=== PATIENT | male | born 1990 | race Caucasian/White ===

== ENCOUNTER 2016-10-06 00:53 | Emergency (ER) | payer SELFPAY ==
[~2016-10-06] VITALS: Ht 180.3 cm; Wt 90.0 kg
[2016-10-06] VITALS (8 sets, daily range): BP systolic 103–139; BP diastolic 61–88; PULSE 74–97; RESP 12–20; TEMP 97.7; O2SAT 95–98
[~2016-10-06 00:53] MED LIST: DOLU1TAB4 PO; TRUVTAB2 PO
--- NOTE | 2016-10-06 01:08 | PD ---
HPI Chief Complaint: OD/ Ingestion Time Seen by Provider: 01:03 Travel History International Travel<30 days: No Contact w/Intl Traveler<30days: No Traveled to known affect area: No History of Present Illness HPI 26-year-old male presents to the emergency department by EMS transport as a heroin overdose. Reportedly patient is able to share his history and states that around 12 midnight he injected heroin. Patient states that this is approximately the fourth time today that he has injected heroin. Patient is an admitted IV drug abuser. Patient typically uses Dilaudid but states it's too expensive and heroin is cheaper. Patient denies being suicidal. Patient did require a total of 1.2 mg of Narcan administration in order to maintain GCS of 15. Patient denies other substance ingestion or alcohol use. Again patient denies trying to harm himself or others. Patient was with a group of people who abuse heroin and collapsed on the couch where he had been sitting after his most recent injection. There was no reported trauma. There was reportedly attempted bystander CPR which was discontinued when bystanders noted the patient was breathing. No report of vomiting. EMS arrived after Friday department that had already arrived on the scene and was bagging the patient and third time of arrival and EMS reports patient had marked diminished and decreased breath sounds and respiratory effort with 4 breaths per minute was administered 0.4 Narcan with minimal response and additional 0.4 Narcan with improvement to LOC of 15 and was started to decrease his mentation therefore a final dose 0.4 mg of Narcan administered patient has continued to need to provide history and maintained GCS of 15. PFSH Past Medical History Narrative Medical ADHD bipolar disorder IV drug abuse hepatitis C HIV; alcohol use, tobacco use, IV drug abuse; nursing notes reviewed Hx Anticoagulant Therapy: No ADHD: Yes Bipolar Disorder: Yes Anxiety: Yes Cardiovascular Problems: No Chemotherapy: No Cerebrovascular Accident: No Diabetes: No Diminished Hearing: No Hepatitis: Yes (C) Immune Disorder: Yes (HIV) Psychiatric: Yes (Hx.) Respiratory: No Immunizations Current: Yes Social History Alcohol Use: Yes (OCC) Tobacco Use: Yes (1/2) Substance Use: Yes (IV) Allergies-Medications (Allergen,Severity, Reaction): Coded Allergies: No Known Allergies (Verified , 10/06/16) Reported Meds & Prescriptions Reported Meds & Active Scripts Active No Active Prescriptions or Reported Medications Review of Systems Except as stated in HPI: all other systems reviewed are Neg General / Constitutional: No: Fever HENT: No: Congestion Cardiovascular: No: Chest Pain or Discomfort Respiratory: No: Shortness of Breath Gastrointestinal: No: Vomiting, Abdominal Pain Genitourinary: No: Flank Pain Musculoskeletal: No: Myalgias, Arthralgias Skin: No Rash Neurologic: No: Weakness Psychiatric: Positive: Substance Abuse, No: Suicidal Ideations, Homicidal Ideation Hematologic/Lymphatic: No: Easy Bruising Physical Exam Narrative GENERAL: Well-developed well-nourished mildly disheveled male GCS of 15 SKIN: Warm and dry. HEAD: Atraumatic. Normocephalic. EYES: Pupils equal and round. No scleral icterus. No injection or drainage. ENT: No nasal bleeding or discharge. Mucous membranes pink and moist. NECK: Trachea midline. No JVD. CARDIOVASCULAR: Regular rate and rhythm. RESPIRATORY: No accessory muscle use. Clear to auscultation. Breath sounds equal bilaterally. GASTROINTESTINAL: Abdomen soft, non-tender, nondistended. Hepatic and splenic margins not palpable. MUSCULOSKELETAL: Extremities without clubbing, cyanosis, or edema. No obvious deformities. NEUROLOGICAL: Awake and alert. No obvious cranial nerve deficits. Motor grossly within normal limits. Five out of 5 muscle strength in the arms and legs. Normal speech. PSYCHIATRIC: Appropriate mood and affect; insight and judgment normal. Data Data Last Documented VS Vital Signs Date Time Temp Pulse Resp B/P Pulse Ox O2 Delivery O2 Flow Rate FiO2 10/06/16 06:28 84 18 115/61 97 Room Air 10/06/16 02:20 2 10/06/16 01:23 97.7 Orders Electrocardiogram (10/06/16 01:03) Complete Blood Count With Diff (10/06/16 01:03) Comprehensive Metabolic Panel (10/06/16 01:03) Prothrombin Time / Inr (Pt) (10/06/16 01:03) Act Partial Throm Time (Ptt) (10/06/16 01:03) Urinalysis - C+S If Indicated (10/06/16 01:03) Chest, Single Ap (10/06/16 01:03) Blood Glucose (10/06/16 01:03) Iv Access Insert/Monitor (10/06/16 01:03) Ecg Monitoring (10/06/16 01:03) Oximetry (10/06/16 01:03) Sodium Chloride 0.9% Flush (Ns Flush) (10/06/16 01:15) Drug Screen, Random Urine (10/06/16 01:03) Alcohol (Ethanol) (10/06/16 01:03) Salicylates (Aspirin) (10/06/16 01:03) Tylenol (Acetaminophen) (10/06/16 01:03) Sodium Chlor 0.9% 1000 Ml Inj (Ns 1000 M (10/06/16 01:15) Sodium Chlor 0.9% 1000 Ml Inj (Ns 1000 M (10/06/16 03:30) Labs Laboratory Tests Test 10/06/16 10/06/16 01:15 03:52 White Blood Count 9.4 TH/MM3 Red Blood Count 4.42 MIL/MM3 Hemoglobin 13.1 GM/DL Hematocrit 38.7 % Mean Corpuscular Volume 87.7 FL Mean Corpuscular Hemoglobin 29.6 PG Mean Corpuscular Hemoglobin 33.8 % Concent Red Cell Distribution Width 13.7 % Platelet Count 208 TH/MM3 Mean Platelet Volume 8.1 FL Neutrophils (%) (Auto) 72.5 % Lymphocytes (%) (Auto) 16.8 % Monocytes (%) (Auto) 6.4 % Eosinophils (%) (Auto) 1.7 % Basophils (%) (Auto) 2.6 % Neutrophils # (Auto) 6.8 TH/MM3 Lymphocytes # (Auto) 1.6 TH/MM3 Monocytes # (Auto) 0.6 TH/MM3 Eosinophils # (Auto) 0.2 TH/MM3 Basophils # (Auto) 0.2 TH/MM3 CBC Comment DIFF FINAL Differential Comment Prothrombin Time 10.6 SEC Prothromb Time International 1.0 RATIO Ratio Activated Partial 25.4 SEC Thromboplast Time Sodium Level 143 MEQ/L Potassium Level 3.7 MEQ/L Chloride Level 105 MEQ/L Carbon Dioxide Level 29.2 MEQ/L Anion Gap 9 MEQ/L Blood Urea Nitrogen 17 MG/DL Creatinine 0.89 MG/DL Estimat Glomerular Filtration 105 ML/MIN Rate Random Glucose 106 MG/DL Calcium Level 8.2 MG/DL Total Bilirubin 0.3 MG/DL Aspartate Amino Transf 53 U/L (AST/SGOT) Alanine Aminotransferase 121 U/L (ALT/SGPT) Alkaline Phosphatase 100 U/L Total Protein 6.8 GM/DL Albumin 3.5 GM/DL Salicylates Level 1.7 MG/DL Acetaminophen Level LESS THAN 2.0 MCG/ML Ethyl Alcohol Level LESS THAN 3 MG/DL Urine Color YELLOW Urine Turbidity CLEAR Urine pH 5.0 Urine Specific [place] 1.023 Urine Protein NEG mg/dL Urine Glucose (UA) NEG mg/dL Urine Ketones NEG mg/dL Urine Occult Blood NEG Urine Nitrite NEG Urine Bilirubin NEG Urine Leukocyte Esterase NEG Urine WBC 0-2 /hpf Urine Squamous Epithelial 0-5 /hpf Cells Urine Hyaline Casts 3-5 /lpf Urine Mucus FEW /lpf Microscopic Urinalysis Comment CULT NOT INDICATED Urine Opiates Screen NEG Urine Barbiturates Screen NEG Urine Amphetamines Screen NEG Urine Benzodiazepines Screen NEG Urine Cocaine Screen NEG Urine Cannabinoids Screen NEG MDM Medical Decision Making Medical Screen Exam Complete: Yes Emergency Medical Condition: Yes Medical Record Reviewed: Yes Interpretation(s) UA: wnl Vital Signs Date Time Temp Pulse Resp B/P Pulse Ox O2 Delivery O2 Flow Rate FiO2 10/06/16 02:20 97 18 113/63 95 Nasal Cannula 2 10/06/16 01:23 97.7 92 12 139/88 95 10/06/16 01:20 97.7 92 12 139/88 95 Nasal Cannula 2 10/06/16 01:01 96 12 93 Nasal Cannula 2 CBC & BMP Diagram 10/06/16 01:15 Vital Signs Date Time Temp Pulse Resp B/P Pulse Ox O2 Delivery O2 Flow Rate FiO2 10/06/16 02:20 97 18 113/63 95 Nasal Cannula 2 10/06/16 01:23 97.7 92 12 139/88 95 10/06/16 01:20 97.7 92 12 139/88 95 Nasal Cannula 2 10/06/16 01:01 96 12 93 Nasal Cannula 2 EKG normal sinus rhythm rate [address] elevation injury pattern or ectopy UDS: negative alcohol: less than 3, not elevated acetaminophen: less than 2.0, not elevated; salicylate level: 1.7, not elevated Differential Diagnosis IV drug abuse, heroin overdose, polysubstance ingestion, electrolyte disturbance , arrhythmia Narrative Course @ 2:25 am GCS 14-15, awakens to voice; vital signs otherwise stable; no additional narcan administration @3:28 AM GCS 14-15 awakens to voice; vital signs otherwise stable; urinalysis and toxicology screen; up out of bed to provide urine specimen; no additional narcan administered @ 6:00 patient sleeping awakens easily to voice GCS 15; again denies suicidal ideation given resources to pursue for detox programs. The patient has made phone call to arrange transportation to home. Tolerating oral hydration well. Vital signs and normal range. Diagnosis Primary Impression: IVDU (intravenous drug user) Additional Impressions: Heroin abuse Heroin overdose Qualified Code: T40.1X1A - Heroin overdose, accidental or unintentional, initial encounter Referrals: [facility] day Patient Instructions: General Instructions Additional Instructions: Discontinue heroin use follow-up with [facility] regarding detox program Increase fluid hydration; do not drink alcoholic beverages Return to the emergency for free concerns or change in condition Scripts No Active Prescriptions or Reported Meds Disposition: 01 DISCHARGE HOME Condition: Stable Juanita Membreno MD Oct 06, 2016 01:08
[2016-10-06] MEDS ORDERED: SODIUM CHLOR 0.9% 1000 ML INJ 1,000 ML IV ONE ×2 (01:15→03:30)
[2016-10-06] MEDS ORDERED: SODIUM CHLORIDE 0.9% FLUSH 10 ML FLUSH IVF PRN (01:15)
[2016-10-06 01:27] LABS: AUTOMATED NEUTROPHIL # 6.8 TH/MM3 (1.8-7.7); BASOPHIL # 0.2 TH/MM3 (0-0.2); BASOPHIL % 2.6 % (0.0-2.0); EOSINOPHIL # 0.2 TH/MM3 (0-0.4); EOSINOPHIL % 1.7 % (0.0-4.0); HEMATOCRIT 38.7 % (39.0-51.0); HEMO FLAGS DIFF FINAL; LYMPH % 16.8 % (9.0-44.0); LYMPHOCYTE # 1.6 TH/MM3 (1.0-4.8); MEAN CELL VOLUME 87.7 FL (80.0-100.0); MEAN CORPUSCULAR HEMOGLOBIN 29.6 PG (27.0-34.0); MEAN CORPUSCULAR HGB CONC 33.8 % (32.0-36.0); MONO % 6.4 % (0.0-8.0); NEUT % 72.5 % (16.0-70.0); PLATELET COUNT 208 TH/MM3 (150-450); RED BLOOD COUNT 4.42 MIL/MM3 (4.50-5.90); RED CELL DISTRIBUTION WIDTH 13.7 % (11.6-17.2); WHITE BLOOD COUNT 9.4 TH/MM3 (4.0-11.0)
[2016-10-06 01:34] LABS: CHLORIDE 105 MEQ/L (98-107); POTASSIUM 3.7 MEQ/L (3.5-5.1); SODIUM (NA) 143 MEQ/L (136-145)
[2016-10-06 01:38] LABS: ANION GAP 9 MEQ/L (5-15); BICARBONATE 29.2 MEQ/L (21.0-32.0); BLOOD UREA NITROGEN 17 MG/DL (7-18)
[2016-10-06 01:39] LABS: APTT (PATIENT) 25.4 SEC (24.3-30.1); PROTHROMBIN TIME - PATIENT 10.6 SEC (9.8-11.6)
[2016-10-06 01:41] LABS: ALT (GPT) 121 U/L (12-78); AST (GOT) 53 U/L (15-37); GLOMERULAR FILTRATION RATE 105 ML/MIN (>89)
[2016-10-06 01:42] LABS: TOTAL BILIRUBIN ADULT 0.3 MG/DL (0.2-1.0)
[2016-10-06 01:44] LABS: ALKALINE PHOSPHATASE 100 U/L (45-117)
--- NOTE | 2016-10-06 01:46 | RADHPO ---
EXAM DATE/TIME: 10/06/2016 01:14 [facility] COMPARISON: CT PULMONARY ANGIOGRAM, April 16, 2016, 0:20. INDICATIONS : Syncope. MEDICAL HISTORY : Hepatitis C. HIV. SURGICAL HISTORY : None. ENCOUNTER: Initial ACUITY: 1 day PAIN SCORE: 0/10 LOCATION: Bilateral chest FINDINGS: Portable AP view of the chest demonstrates a normal-sized cardiac silhouette. No effusion or pneumoth orax is visualized. There is questionable subtle airspace opacity in the left midlung zone The bones and soft tissues demonstrate no acute abnormality. CONCLUSION: Questionable subtle airspace opacity in the left midlung zone. No other acute finding is identified. Jelani Bustamante MD on October 06, 2016 at 1:42 Board Certified Radiologist. This report was verified electronically.
[2016-10-06 02:36] LABS: ACETAMINOPHEN LESS THAN 2.0 MCG/ML (10.0-30.0)
[2016-10-06 04:06] LABS: BLOOD, URINE NEG (NEG); GLUCOSE,URINE NEG (NEG); KETONE, URINE NEG (NEG); NITRITE,URINE NEG (NEG)
[2016-10-06 04:19] LABS: URINE COLOR YELLOW (YELLW/STRAW)
[2016-10-06 04:21] LABS: MUCUS URINE FEW /lpf (OCC); SQUAMOUS EPITHELIAL CELL URINE 0-5 /hpf (0-5)
[2016-10-06 04:22] LABS: COMMENT (UR) CULT NOT INDICATED; CULTURE IF INDICATED CULT NOT INDICATED; WBC, URINE 0-2 /hpf (0-5)
[2016-10-06 04:26] LABS: AMPHETAMINE, URINE NEG (NEG)
[2016-10-06 04:29] LABS: BARBITURATES, URINE NEG (NEG)
[2016-10-06 04:33] LABS: COCAINE, URINE NEG (NEG)
--- NOTE | 2016-10-06 21:00 | EKG ---
Date Performed: 10/06/2016 Time Performed: 01:03:52 PTAGE: 26 years EKG: Sinus rhythm . Normal ECG PREVIOUS TRACING : 04/15/2016 18.08 DOCTOR: Heber Bhatt Interpretating Date/Time 10/06/2016 21:00:05
== END 2016-10-06 11:03 | disposition home or self-care (01) ==
LOC: PHED 00:53
DX: T40.1X1A Poisoning by heroin, accidental (unintentional), initial encounter (principal); F11.10 Opioid abuse, uncomplicated; F17.200 Nicotine dependence, unspecified, uncomplicated; Z21 Asymptomatic human immunodeficiency virus [HIV] infection status; Z86.59 Personal history of other mental and behavioral disorders; Z86.19 Personal history of other infectious and parasitic diseases
CPT/HCPCS: 71010; 80053; 80307; 81001; 85025; 85610; 85730; 93005; 96360; 96361; 99284; J7030

== ENCOUNTER 2017-02-07 09:56 | Emergency (ER) | payer OTHER ==
[~2017-02-07] VITALS: Ht 167.6 cm; Wt 60.0 kg
[2017-02-07 10:10] VITALS: BP 110/66; PULSE 61; RESP 18; TEMP 98.1; O2SAT 96
--- NOTE | 2017-02-07 10:21 | PD ---
HPI Chief Complaint: Alcohol/Drug Intoxication Time Seen by Provider: 10:02 Travel History International Travel<30 days: No Contact w/Intl Traveler<30days: No Traveled to known affect area: No History of Present Illness HPI The patient is a 26-year-old male who presents to the emergency department via police as a Gal[place] act. The patient states he was using "ice" last night. The patient states he is currently homeless and does not have a place to sleep. He currently complains of being hungry. The police state they found him on the sidewalk, apparently he was weaving in and out of traffic according to the police. The patient was placed under a Galdamez act. The patient denies any physical complaints except for being hungry. He does note an abrasion to his forehead, states his tetanus shot is up-to-date several months ago. He denies any alcohol ingestion. He denies any weakness or focal deficits. PFSH Past Medical History Hx Anticoagulant Therapy: No ADHD: Yes Autoimmune Disease: Yes (HIV) Bipolar Disorder: Yes Anxiety: Yes Cardiovascular Problems: No Chemotherapy: No Cerebrovascular Accident: No Diabetes: No Diminished Hearing: No Hepatitis: Yes (HEP C) Immune Disorder: Yes (HIV) Psychiatric: Yes ( ) Respiratory: No Immunizations Current: Yes Tetanus Vaccination: < 5 Years Social History Alcohol Use: Yes ( ) Tobacco Use: Yes ( ) Substance Use: Yes (ICE, HEROIN) Allergies-Medications (Allergen,Severity, Reaction): Coded Allergies: No Known Allergies (Verified , 10/06/16) Reported Meds & Prescriptions Reported Meds & Active Scripts Active No Active Prescriptions or Reported Medications Review of Systems Except as stated in HPI: all other systems reviewed are Neg Cardiovascular: No: Chest Pain or Discomfort Respiratory: No: Shortness of Breath Gastrointestinal: No: Nausea, Vomiting, Abdominal Pain Psychiatric: Positive: Substance Abuse Physical Exam Narrative GENERAL: 26-year-old male who appears his stated age and is in no acute respiratory distress. SKIN: Focused skin assessment warm/dry. HEAD: Superficial abrasion to the mid forehead.. EYES: Pupils equal and round. Pupils are 3 mm bilateral and reactive. ENT: No nasal bleeding or discharge. Mucous membranes pink and moist. NECK: Trachea midline. No JVD. CARDIOVASCULAR: Regular rate and rhythm. No murmur appreciated. RESPIRATORY: No accessory muscle use. Clear to auscultation. Breath sounds equal bilaterally. GASTROINTESTINAL: Abdomen soft, non-tender, nondistended. MUSCULOSKELETAL: No obvious deformities. No clubbing. No cyanosis. No edema. NEUROLOGICAL: Awake and alert. No obvious cranial nerve deficits. Motor grossly within normal limits. Normal speech. Nonfocal. PSYCHIATRIC: Appropriate mood and affect; insight and judgment normal. Data Data Last Documented VS Vital Signs Date Time Temp Pulse Resp B/P Pulse Ox O2 Delivery O2 Flow Rate FiO2 02/07/17 10:10 98.1 61 18 110/66 96 MDM Medical Decision Making Medical Screen Exam Complete: Yes Emergency Medical Condition: Yes Medical Record Reviewed: Yes Differential Diagnosis Differential diagnosis includes polysubstance abuse, IVDU, substance ingestion Narrative Course The patient has no physical complaints, admits to using "ice "last night. The patient will be monitored in the emergency department and discharged when he is able to ambulate with difficulty. Diagnosis Primary Impression: IVDU (intravenous drug user) Scripts No Active Prescriptions or Reported Meds Condition: Stable William Abbott MD Feb 07, 2017 10:21
[2017-02-07 11:41] VITALS: PULSE 77; RESP 20; O2SAT 97
[2017-02-07 14:56] VITALS: BP 99/60; PULSE 61; RESP 20; O2SAT 99
[2017-02-07] MEDS ORDERED: BACT800T5 PO (23:13)
[2017-02-07] MEDS ORDERED: CEPH-460 PO (23:13)
== END 2017-02-07 20:13 | disposition home or self-care (01) ==
LOC: NEPD 09:56
DX: F19.90 Other psychoactive substance use, unspecified, uncomplicated (principal); Z59.0 Homelessness
CPT/HCPCS: 99281

== ENCOUNTER 2017-02-07 21:42 | Emergency (ER) | payer SELFPAY ==
[~2017-02-07] VITALS: Ht 177.8 cm; Wt 75.0 kg
[2017-02-07 21:45] VITALS: BP 123/56; PULSE 81; RESP 12; TEMP 98.6; O2SAT 100
[2017-02-07] MEDS ORDERED: CEPH-460 PO (23:13)
[2017-02-07] MEDS ORDERED: BACT800T5 PO (23:13)
[2017-02-07] MEDS ORDERED: SULFAMETHOXAZOLE-TRIMETHOPRIM DS 800-160 MG TAB PO ONE (23:15)
[2017-02-07] MEDS ORDERED: CEPHALEXIN MONOHYDRATE 500 MG CAP PO ONE (23:15)
--- NOTE | 2017-02-07 23:19 | PD ---
HPI Chief Complaint: Skin Problem Time Seen by Provider: 11:05 Travel History International Travel<30 days: No Contact w/Intl Traveler<30days: No Traveled to known affect area: No History of Present Illness HPI 26-year-old male with history of HIV and IV drug abuse presents for evaluation of a skin sore in his left arm. He first noticed a 1 week ago. It is painful. He has another sore in his forehead as well as some other nontender sores on his arms. He last injected 2 days ago, typically injects in his antecubital regions. He denies any fevers, chills, chest pain or shortness of breath. The patient was seen here earlier today for evaluation of drug abuse and recently discharged. He has no other complaints. PFSH Past Medical History Hx Anticoagulant Therapy: No ADHD: Yes Autoimmune Disease: Yes (HIV) Bipolar Disorder: Yes Anxiety: Yes Cardiovascular Problems: No Chemotherapy: No Cerebrovascular Accident: No Diabetes: No Diminished Hearing: No Hepatitis: Yes (HEP C) Immune Disorder: Yes (HIV) Psychiatric: Yes ( ) Respiratory: No Immunizations Current: Yes Past Surgical History Surgical History: No Previous Surgery Social History Alcohol Use: Yes ( ) Tobacco Use: Yes ( ) Substance Use: Yes (ICE, HEROIN) Allergies-Medications (Allergen,Severity, Reaction): Coded Allergies: No Known Allergies (Verified , 02/07/17) Reported Meds & Prescriptions Reported Meds & Active Scripts Active Keflex (Cephalexin) 500 Mg Cap 500 Mg PO Q8H Bactrim DS (Sulfamethoxazole-Trimethoprim) 800-160 Mg Tab 1 Tab PO BID Review of Systems Except as stated in HPI: all other systems reviewed are Neg Physical Exam Narrative GENERAL: Well-developed well-nourished male in no acute distress. Vital signs reviewed. SKIN: Warm and dry. Abrasion noted to the forehead. Some scabbed circular lesions are noted to both arms. There is one scab lesion left forearm with mild erythematous changes surrounding. No petechiae. No vesicles. HEAD: Atraumatic. Normocephalic. EYES: Pupils equal and round. No scleral icterus. No injection or drainage. ENT: No nasal bleeding or discharge. Mucous membranes pink and moist. NECK: Trachea midline. No JVD. CARDIOVASCULAR: Regular rate and rhythm. No murmur appreciated. RESPIRATORY: No accessory muscle use. Clear to auscultation. Breath sounds equal bilaterally. GASTROINTESTINAL: Abdomen soft, non-tender, nondistended. Hepatic and splenic margins not palpable. MUSCULOSKELETAL: No obvious deformities. No clubbing. No cyanosis. No edema. NEUROLOGICAL: Awake and alert. No obvious cranial nerve deficits. Motor grossly within normal limits. Normal speech. Data Data Last Documented VS Vital Signs Date Time Temp Pulse Resp B/P Pulse Ox O2 Delivery O2 Flow Rate FiO2 02/07/17 23:06 18 02/07/17 21:45 98.6 81 123/56 100 Room Air Orders Sulfamet-Trimeth Ds 800-160 Mg (Bactrim (02/07/17 23:15) Cephalexin (Keflex) (02/07/17 23:15) [facility] Medical Decision Making Medical Screen Exam Complete: Yes Emergency Medical Condition: Yes Medical Record Reviewed: Yes Differential Diagnosis Cellulitis, abscess, septic emboli, impetigo, abrasion Narrative Course 26-year-old male who was just discharged from the emergency room after evaluation for IV drug abuse, presents for evaluation of a painful scab lesion left forearm. Examination does reveal several scabbed lesions on both forearms as well as one on the forehead. One of the lesions on left forearm has some cellulitic changes with no evidence of abscess. He is afebrile, not tachycardic and does not appear septic. His lungs are clear. He has no murmur. Thing would be to discharge the patient with Bactrim and Keflex for his cellulitis. I had a long discussion with the patient about the importance of discontinuing IV drug abuse, the risks associated with it, recommended follow -up with a detoxification center such as [facility]. Diagnosis Primary Impression: IVDU (intravenous drug user) Additional Impression: Cellulitis of left forearm Referrals: [facility] Additional Instructions: Antibiotics as prescribed. As discussed, follow-up with detoxification center such as [facility]. Return for any emergent medical conditions. Med/Other Pt SpecificInfo: Prescription(s) given Scripts Cephalexin (Keflex)500 Mg Phe353 Mg PO Q8H #30 CAP Ref 0 Prov:Selvin Reed MD 02/07/17 Sulfamethoxazole-Trimethoprim (Bactrim DS)800-160 Mg Tab1 Tab PO BID #20 TAB Ref 0 Prov:Selvin Reed MD 02/07/17 Disposition: 01 DISCHARGE HOME Condition: Stable Wilbur Gilliam Feb 07, 2017 23:19
== END 2017-02-07 23:28 | disposition home or self-care (01) ==
LOC: NEPD 21:42
DX: L03.114 Cellulitis of left upper limb (principal); F19.90 Other psychoactive substance use, unspecified, uncomplicated; Z21 Asymptomatic human immunodeficiency virus [HIV] infection status; B19.20 Unspecified viral hepatitis C without hepatic coma
CPT/HCPCS: 99284